=== PATIENT | female | born 1950 | race Caucasian/White ===

== ENCOUNTER 2017-10-05 16:01 | Emergency (ER) | payer MEDICARE, BC ==
[~2017-10-05] VITALS: Ht 172.7 cm; Wt 94.7 kg
[~2017-10-05 16:01] MED LIST: ALPR1TAB2 PO; ALPR2TAB2 PO; AMLO10TA4 PO; ATOR20TA9 PO; HYDR-3307 PO; INSU100V SQ; INSU100V8 SQ; LAMO200T2 PO; LISI30TA4 PO; LISINOPRIL/HCTZ PO; METF500T4 PO; MONT10TA6 PO; NORT50CA PO; TRAZ150T62 PO; TRAZ50TA18 PO
[2017-10-05 16:36] VITALS: BP 113/56
== END 2017-10-05 18:25 | disposition home or self-care (01) ==
LOC: ED 18:19
DX: S30.0XXA Contusion of lower back and pelvis, initial encounter (principal); I10 Essential (primary) hypertension; E11.9 Type 2 diabetes mellitus without complications; J45.909 Unspecified asthma, uncomplicated; Z90.710 Acquired absence of both cervix and uterus; X58.XXXA Exposure to other specified factors, initial encounter; Y93.89 Activity, other specified; Y99.8 Other external cause status; Y92.89 Other specified places as the place of occurrence of the external cause
CPT/HCPCS: 99284

== ENCOUNTER 2018-05-21 13:05 | Inpatient (IN) | payer MEDICARE, BC ==
[~2018-05-21] VITALS: Ht 172.7 cm; Wt 86.8 kg
[2018-05-21] VITALS (10 sets, daily range): BP systolic 135–162; BP diastolic 59–75
[~2018-05-21 13:05] MED LIST changes: -METF500T4 PO; +METF500T5 PO; +TRAZ-136 PO; -TRAZ50TA18 PO
[2018-05-21 13:48] LABS: MEAN CORPUSCULAR HEMOGLOBIN 19.7 pg (27.0-34.8); MEAN CORPUSCULAR HGB CONC 29.9 g/dL (32.4-35.8); MEAN CORPUSCULAR VOLUME 66.2 fL (80-100); MEAN PLATELET VOLUME 8.7 fL (7.4-10.4); PLATELET COUNT 221 x10^3/uL (130-400); RED BLOOD COUNT 3.09 x10^6/uL (3.82-5.3)
[2018-05-21 13:50] LABS: ALANINE AMINOTRANSFERASE 23 U/L (12-78); ALBUMIN 3.2 g/dL (3.4-5.0); ANION GAP 7 mmol/L (5-15); CALCIUM 7.7 mg/dL (8.5-10.1); CHLORIDE 121 mmol/L (98-107); CREATININE 1.44 mg/dL (0.55-1.02)
[2018-05-21 13:52] LABS: ALKALINE PHOSPHATASE 109 U/L (45-117); BILIRUBIN,TOTAL 0.2 mg/dL (0.2-1.0); TOTAL PROTEIN 6.5 g/dL (6.4-8.2)
[2018-05-21 14:14] LABS: MD YES
[2018-05-21 14:18] LABS: ANISOCYTOSIS 1+; BAND#(MANUAL) 0.19 x10^3/uL; BANDS%(MANUAL) 3 % (0-7); EOS#(MANUAL) 0.13 x10^3/uL (0.0-0.4); EOS% (MANUAL) 2 % (1-7); LYMPH#(MANUAL) 0.76 x10^3/uL (1-3.4); LYMPHS% (MANUAL) 12 % (22-44); MICROCYTOSIS 2+; MONOS#(MANUAL) 0.06 x10^3/uL (0.3-2.7); MONOS% (MANUAL) 1 % (2-9); SEG#(MANUAL) 5.17 x10^3/uL (1.8-6.8); SEGS% (MANUAL) 82 % (42-75)
[2018-05-21 14:19] LABS: <PLATELET ESTIMATE> ADEQUATE; <PLT MORPHOLOGY> NORMAL PLT MORPH; HYPOCHROMIA 1+
[2018-05-21] MEDS ORDERED: ENALAPRILAT 1.25 MG/ML, 2ML IVPush PRN (15:00)
[2018-05-21] MEDS ORDERED: GUAIFENESIN/COD200MG-20MG/10ML LIQUID PO PRN (15:00)
[2018-05-21] MEDS ORDERED: LABETALOL 5MG/ML, 20ML IVPush PRN (15:00)
[2018-05-21] MEDS ORDERED: BISACODYL 10 MG SUPP PR PRN (15:00)
[2018-05-21] MEDS ORDERED: SODIUM CHLORIDE 0.9% 1,000 ML IV SCH (15:00)
[2018-05-21] MEDS ORDERED: ONDANSETRON ODT 4 MG PO PRN (15:00)
[2018-05-21] MEDS ORDERED: ACETAMINOPHEN 325 MG TABLET PO PRN (15:00)
[2018-05-21] MEDS ORDERED: POLYETHYLENE GLYCOL 17 GM PACKET PO PRN (15:00)
[2018-05-21] MEDS ORDERED: GLUCAGON 1 MG IM PRN (15:30)
[2018-05-21] MEDS ORDERED: DEXTROSE 50%, 50ML SYRINGE IVPush PRN (15:30)
[2018-05-21] MEDS ORDERED: DEXTROSE 4 GM TAB.CHEW PO PRN (15:30)
[2018-05-21] MEDS ORDERED: SODIUM CHLORIDE 0.45% 1,000 ML IV SCH (15:30)
[2018-05-21 15:42] LABS: ABSOLUTE RETICS # 0.058 x10^6/uL (0.5-2.5); RETICULOCYTE COUNT % 1.88 % (0.5-1.5)
[2018-05-21 15:44] LABS: RED BLOOD COUNT 3.09 x10^6/uL (3.82-5.3)
[2018-05-21 15:57] LABS: FOLATE LEVEL 11.6 ng/mL (3.1-17.5); THYROID STIMULATING HORMONE 1.97 mIU/L (0.358-3.740)
[2018-05-21] MEDS: INSULIN LISPRO 100 UNITS/ML, PEN SQ-INSULIN SCH ×2 (16:00→21:00)
[2018-05-21] MEDS: ALPRazolam 1MG TABLET PO PRN (17:21)
[2018-05-21] MEDS ORDERED: TRAZODONE 100MG TABLET PO PRN (21:00)
[2018-05-21] MEDS: SODIUM CHLORIDE FLUSH 10ML SYR IVF SCH (21:00)
[2018-05-21] MEDS ORDERED: DOCUSATE 100 MG CAPSULE PO PRN (21:00)
[2018-05-21] MEDS: NORTRIPTYLINE 50 MG CAPSULE PO SCH (21:19)
[2018-05-21] MEDS: QUETIAPINE 25MG TABLET PO SCH (21:20)
[2018-05-21 21:57] LABS: CULTURE INDICATED? YES; MICROSCOPIC INDICATED
[2018-05-21] MEDS: CEFTRIAXONE 2 GM in SODIUM CHLORIDE 0.9% 50 ML IV SCH (23:29)
[2018-05-22] MEDS: ALPRazolam 1MG TABLET PO PRN ×2 (01:43→17:14)
[2018-05-22 02:00] VITALS: BP 151/56
[2018-05-22 02:10] LABS: BASOPHILS # (AUTO) 0.03 x10^3/uL (0-0.1); BASOPHILS % (AUTO) 0 % (0-1); EOSINOPHILS # (AUTO) 0.35 x10^3/uL (0-0.4); EOSINOPHILS % (AUTO) 5 % (1-7); LYMPHOCYTES # (AUTO) 2.06 x10^3/uL (1-3.4); LYMPHOCYTES % (AUTO) 32 % (22-44); MD NO; MEAN CORPUSCULAR HEMOGLOBIN 21.2 pg (27.0-34.8); MEAN CORPUSCULAR HGB CONC 30.6 g/dL (32.4-35.8); MEAN CORPUSCULAR VOLUME 69.2 fL (80-100); MEAN PLATELET VOLUME 8.7 fL (7.4-10.4); MONOCYTES # (AUTO) 0.47 x10^3/uL (0.2-0.8); MONOCYTES % (AUTO) 7 % (2-9); NEUTROPHILS # (AUTO) 3.57 x10^3/uL (1.8-6.8); NEUTROPHILS % (AUTO) 55 % (42-75); PLATELET COUNT 194 x10^3/uL (130-400); RED BLOOD COUNT 3.61 x10^6/uL (3.82-5.3); RED CELL DISTRIBUTION WIDTH 21.1 % (9.6-15.2)
[2018-05-22 02:13] LABS: ALANINE AMINOTRANSFERASE 18 U/L (12-78); ANION GAP 7 mmol/L (5-15); CALCIUM 7.8 mg/dL (8.5-10.1); CHLORIDE 120 mmol/L (98-107)
[2018-05-22 02:15] LABS: ALKALINE PHOSPHATASE 103 U/L (45-117); BILIRUBIN,TOTAL 0.5 mg/dL (0.2-1.0); CREATININE 1.35 mg/dL (0.55-1.02); TOTAL PROTEIN 6.2 g/dL (6.4-8.2)
[2018-05-22] MEDS: HYDROcodone/APAP 5/325 TABLET PO PRN ×4 (03:10→22:36)
[2018-05-22] MEDS: INSULIN LISPRO 100 UNITS/ML, PEN SQ-INSULIN SCH ×4 (07:00→20:38)
[2018-05-22 08:06] VITALS: BP 143/62
[2018-05-22] MEDS: QUETIAPINE 25MG TABLET PO SCH ×2 (09:15→20:32)
[2018-05-22] MEDS: LAMOTRIGINE 200 MG TABLET PO SCH (09:15)
[2018-05-22] MEDS: SODIUM CHLORIDE FLUSH 10ML SYR IVF SCH ×2 (09:16→20:34)
[2018-05-22 12:26] VITALS: BP 146/58
[2018-05-22] MEDS ORDERED: IRON DEXTRAN IV PER PHARMACY IV PRN (14:00)
[2018-05-22] MEDS: IRON SUCROSE COMPLEX 100MG/5ML IV SCH (15:52)
[2018-05-22] MEDS: LISINOPRIL 10 MG TABLET PO SCH (15:53)
[2018-05-22] MEDS: FERROUS GLUCONATE 324 MG TABLET PO SCH (17:14)
[2018-05-22 18:23] LABS: OCCULT BLOOD NEGATIVE (NEGATIVE)
[2018-05-22] MEDS: NORTRIPTYLINE 50 MG CAPSULE PO SCH (20:32)
[2018-05-22 21:55] VITALS: BP 148/64
[2018-05-22] MEDS: CEFTRIAXONE 2 GM in SODIUM CHLORIDE 0.9% 50 ML IV SCH (22:36)
[2018-05-23 02:16] VITALS: BP 129/72
[2018-05-23] MEDS: HYDROcodone/APAP 5/325 TABLET PO PRN ×3 (02:26→14:56)
[2018-05-23 04:34] LABS: BASOPHILS # (AUTO) 0.03 x10^3/uL (0-0.1); BASOPHILS % (AUTO) 1 % (0-1); EOSINOPHILS # (AUTO) 0.38 x10^3/uL (0-0.4); EOSINOPHILS % (AUTO) 7 % (1-7); LYMPHOCYTES # (AUTO) 1.53 x10^3/uL (1-3.4); LYMPHOCYTES % (AUTO) 28 % (22-44); MD NO; MEAN CORPUSCULAR HEMOGLOBIN 21.5 pg (27.0-34.8); MEAN CORPUSCULAR HGB CONC 30.8 g/dL (32.4-35.8); MEAN CORPUSCULAR VOLUME 69.7 fL (80-100); MEAN PLATELET VOLUME 8.8 fL (7.4-10.4); MONOCYTES # (AUTO) 0.43 x10^3/uL (0.2-0.8); MONOCYTES % (AUTO) 8 % (2-9); NEUTROPHILS # (AUTO) 3.19 x10^3/uL (1.8-6.8); NEUTROPHILS % (AUTO) 57 % (42-75); PLATELET COUNT 191 x10^3/uL (130-400); RED BLOOD COUNT 3.62 x10^6/uL (3.82-5.3); RED CELL DISTRIBUTION WIDTH 21.2 % (9.6-15.2)
[2018-05-23 04:41] LABS: ANION GAP 10 mmol/L (5-15); CALCIUM 7.6 mg/dL (8.5-10.1); CHLORIDE 116 mmol/L (98-107); CREATININE 1.29 mg/dL (0.55-1.02)
[2018-05-23] MEDS: INSULIN LISPRO 100 UNITS/ML, PEN SQ-INSULIN SCH ×3 (07:00→16:00)
[2018-05-23] MEDS: FERROUS GLUCONATE 324 MG TABLET PO SCH (07:25)
[2018-05-23] MEDS: LISINOPRIL 10 MG TABLET PO SCH (07:59)
[2018-05-23] MEDS: SODIUM CHLORIDE FLUSH 10ML SYR IVF SCH (07:59)
[2018-05-23] MEDS: LAMOTRIGINE 200 MG TABLET PO SCH (08:00)
[2018-05-23] MEDS: QUETIAPINE 25MG TABLET PO SCH (08:00)
[2018-05-23] MEDS: IRON SUCROSE COMPLEX 100MG/5ML IV SCH (08:00)
[2018-05-23 08:13] VITALS: BP 148/71
[2018-05-23 13:09] VITALS: BP 152/70
[2018-05-23] MEDS ORDERED: FERR325T16 PO (13:52)
[2018-05-23] MEDS ORDERED: CEFD300C37 PO (13:52)
== END 2018-05-23 16:00 | disposition home or self-care (01) | DRG 811 ==
LOC: ED 14:51 → EDIP 14:52 → 4WST 15:22 → 3NW 05-22 11:45
PROVIDERS: ADMIT Internal Medicine; ATTEND Internal Medicine
PROC: 30233N1 Transfusion of Nonautologous Red Blood Cells into Peripheral Vein, Percutaneous Approach (ICD-10-PCS; principal; 2018-05-21)
DX: D50.9 Iron deficiency anemia, unspecified (principal); N17.0 Acute kidney failure with tubular necrosis; E11.9 Type 2 diabetes mellitus without complications; J44.9 Chronic obstructive pulmonary disease, unspecified; F31.9 Bipolar disorder, unspecified; I10 Essential (primary) hypertension; I95.1 Orthostatic hypotension; Z87.442 Personal history of urinary calculi; Z87.891 Personal history of nicotine dependence; Z98.84 Bariatric surgery status; Z90.710 Acquired absence of both cervix and uterus; Z91.19 Patient's noncompliance with other medical treatment and regimen; Z85.3 Personal history of malignant neoplasm of breast; Z90.12 Acquired absence of left breast and nipple; Z79.899 Other long term (current) drug therapy
CPT/HCPCS: 36415; 36430; 80048; 80053; 81001; 82272; 82607; 82728; 82746; 82962; 83540; 83550; 83615; 83735; 84100; 84443; 84466; 85014; 85018; 85025; 85045; 85610; 85730; 86850; 86900; 86923; 87077; 87086; 87186; 93005; J0696; J1756; J1815; P9016

== ENCOUNTER 2020-01-17 13:38 | Outpatient (CLI) | payer MEDICARE, BC ==
[~2020-01-17 13:38] MED LIST changes: +ATOR20TA37 PO; -ATOR20TA9 PO; +CEFD300C37 PO; +FERR325T16 PO; -HYDR-3307 PO; +HYDR-36 PO; -LAMO200T2 PO; +LAMO200T6 PO; +METF500T17 PO; -METF500T5 PO; -NORT50CA PO; +NORT50CA52 PO; -TRAZ-136 PO; +TRAZ50TA66 PO
[2020-01-17 16:18] LABS: BASOPHILS # (AUTO) 0.02 x10^3/uL (0-0.1); BASOPHILS % (AUTO) 0 % (0-1); EOSINOPHILS # (AUTO) 0.23 x10^3/uL (0-0.4); EOSINOPHILS % (AUTO) 3 % (1-7); LYMPHOCYTES % (AUTO) 24 % (22-44); MD NO; MEAN CORPUSCULAR HEMOGLOBIN 28.2 pg (27.0-34.8); MEAN CORPUSCULAR HGB CONC 32.6 g/dL (32.4-35.8); MEAN CORPUSCULAR VOLUME 86.4 fL (80-100); MEAN PLATELET VOLUME 9.1 fL (7.4-10.4); MONOCYTES # (AUTO) 0.18 x10^3/uL (0.2-0.8); MONOCYTES % (AUTO) 3 % (2-9); NEUTROPHILS % (AUTO) 70 % (42-75); PLATELET COUNT 152 x10^3/uL (130-400); RED BLOOD COUNT 4.17 x10^6/uL (3.82-5.3)
[2020-01-17 16:21] LABS: ALBUMIN 2.9 g/dL (3.4-5.0); ANION GAP 7 mmol/L (5-15); CALCIUM 8.1 mg/dL (8.5-10.1); CALCIUM 8.4 mg/dL (8.5-10.1); CHLORIDE 113 mmol/L (98-107); CREATININE 1.87 mg/dL (0.55-1.02); IRON LEVEL 38 mcg/dL (50-170)
[2020-01-17 16:26] LABS: % IRON SATURATION 13 % (20-55); TOTAL IRON BINDING CAPACITY 291 mcg/dL (250-450)
[2020-01-17 16:36] LABS: CULTURE INDICATED? YES; MICROSCOPIC INDICATED
[2020-01-22 14:24] LABS: ANTI-NUCLEAR ANTIBODY PATTERN CYTOPLASMIC
== END 2020-01-17 23:59 | disposition home or self-care (01) ==
LOC: CFH 13:38
PROVIDERS: ATTEND Internal Medicine Nephrology
DX: E87.2 Acidosis (principal); R80.9 Proteinuria, unspecified; R31.29 Other microscopic hematuria; E11.22 Type 2 diabetes mellitus with diabetic chronic kidney disease; I12.9 Hypertensive chronic kidney disease with stage 1 through stage 4 chronic kidney disease, or unspecified chronic kidney disease; N18.3 Chronic kidney disease, stage 3 (moderate)
CPT/HCPCS: 36415; 80069; 80074; 81001; 82043; 82306; 82310; 82570; 82728; 83036; 83516; 83540; 83550; 83883; 83970; 84155; 84156; 84165; 84166; 84550; 85025; 85651; 86038; 86160; 86162; 86256; 87086

== ENCOUNTER 2020-03-19 13:45 | Outpatient (CLI) | payer MEDICARE, BC ==
[~2020-03-19 13:45] MED LIST changes: +HYDR-3246 PO; -HYDR-36 PO
[2020-03-19 15:56] LABS: BASOPHILS # (AUTO) 0.02 x10^3/uL (0-0.1); BASOPHILS % (AUTO) 0 % (0-1); EOSINOPHILS # (AUTO) 0.21 x10^3/uL (0-0.4); EOSINOPHILS % (AUTO) 4 % (1-7); LYMPHOCYTES # (AUTO) 1.44 x10^3/uL (1-3.4); LYMPHOCYTES % (AUTO) 27 % (22-44); MD NO; MEAN CORPUSCULAR HEMOGLOBIN 28.7 pg (27.0-34.8); MEAN CORPUSCULAR HGB CONC 32.8 g/dL (32.4-35.8); MEAN CORPUSCULAR VOLUME 87.3 fL (80-100); MEAN PLATELET VOLUME 9.2 fL (7.4-10.4); MONOCYTES # (AUTO) 0.27 x10^3/uL (0.2-0.8); MONOCYTES % (AUTO) 5 % (2-9); NEUTROPHILS # (AUTO) 3.36 x10^3/uL (1.8-6.8); NEUTROPHILS % (AUTO) 63 % (42-75); PLATELET COUNT 134 x10^3/uL (130-400); RED BLOOD COUNT 3.91 x10^6/uL (3.82-5.3); RED CELL DISTRIBUTION WIDTH 15.7 % (9.6-15.2)
[2020-03-19 16:13] LABS: CALCIUM 8.4 mg/dL (8.5-10.1)
[2020-03-19 16:16] LABS: ANION GAP 8 mmol/L (5-15); CALCIUM 8.3 mg/dL (8.5-10.1); CHLORIDE 114 mmol/L (98-107); CREATININE 1.48 mg/dL (0.55-1.02)
[2020-03-19 16:46] LABS: MICROSCOPIC INDICATED
== END 2020-03-19 23:59 | disposition home or self-care (01) ==
LOC: CFH 13:45
PROVIDERS: ATTEND Internal Medicine Nephrology
DX: I12.9 Hypertensive chronic kidney disease with stage 1 through stage 4 chronic kidney disease, or unspecified chronic kidney disease (principal); E11.22 Type 2 diabetes mellitus with diabetic chronic kidney disease; N18.3 Chronic kidney disease, stage 3 (moderate); R80.9 Proteinuria, unspecified; R31.29 Other microscopic hematuria; E87.2 Acidosis; N20.0 Calculus of kidney; Z68.28 Body mass index [BMI] 28.0-28.9, adult
CPT/HCPCS: 36415; 80069; 81001; 82306; 82310; 82570; 83970; 84156; 84550; 85025

== ENCOUNTER 2020-11-18 08:00 | Outpatient (CLI) | payer MEDICARE, BC ==
[~2020-11-18 08:00] MED LIST changes: -HYDR-3246 PO; +HYDR-3248 PO
== END 2020-11-18 23:59 | disposition home or self-care (01) ==
LOC: CVU 08:00
PROVIDERS: ATTEND Internal Medicine Cardiovascular Disease
DX: I08.3 Combined rheumatic disorders of mitral, aortic and tricuspid valves (principal); E11.9 Type 2 diabetes mellitus without complications; Z85.3 Personal history of malignant neoplasm of breast
CPT/HCPCS: 93306